=== PATIENT | female | born 1935 | race Caucasian/White ===

== ENCOUNTER 2017-03-22 08:23 | Day surgery (SDC) | payer MEDICARE ==
[~2017-03-22] VITALS: Ht 154.9 cm; Wt 50.0 kg
[~2017-03-22 08:23] MED LIST: AZIT250T74 PO; HYDR-2768 PO; NATURAL SUPPLEMENTS; NEBI20 PO; RAMI10CA35 PO; SYNT50TA PO; TEMA15 PO
[2017-03-22 08:35] VITALS: BP 180/80; PULSE 67; RESP 20; TEMP 98.2; O2SAT 97
[2017-03-22] MEDS ORDERED: RAMI10CA PO (08:51)
[2017-03-22] MEDS ORDERED: BYST10TA2 PO (08:51)
[2017-03-22] MEDS ORDERED: AMLO5TAB2 PO (08:51)
[2017-03-22] MEDS ORDERED: LEVO.05 PO (08:51)
[2017-03-22] MEDS ORDERED: TEMA15CA PO (08:51)
[2017-03-22] MEDS ORDERED: SODIUM CHLOR 0.9% 1000 ML INJ 1,000 ML IV SCH (09:00)
[2017-03-22 09:43] LABS: AUTOMATED NEUTROPHIL # 5.1 TH/MM3 (1.8-7.7); BASOPHIL # 0.1 TH/MM3 (0-0.2); BASOPHIL % 1.3 % (0.0-2.0); EOSINOPHIL # 0.3 TH/MM3 (0-0.4); EOSINOPHIL % 3.1 % (0.0-4.0); HEMATOCRIT 36.8 % (35.0-46.0); HEMO FLAGS DIFF FINAL; LYMPH % 23.1 % (9.0-44.0); LYMPHOCYTE # 1.9 TH/MM3 (1.0-4.8); MEAN CELL VOLUME 88.5 FL (80.0-100.0); MEAN CORPUSCULAR HEMOGLOBIN 29.4 PG (27.0-34.0); MEAN CORPUSCULAR HGB CONC 33.2 % (32.0-36.0); MONO % 10.1 % (0.0-8.0); NEUT % 62.4 % (16.0-70.0); PLATELET COUNT 219 TH/MM3 (150-450); RED BLOOD COUNT 4.16 MIL/MM3 (4.00-5.30); RED CELL DISTRIBUTION WIDTH 14.4 % (11.6-17.2); WHITE BLOOD COUNT 8.2 TH/MM3 (4.0-11.0)
[2017-03-22 09:51] LABS: APTT (PATIENT) 28.6 SEC (24.3-30.1); PROTHROMBIN TIME - PATIENT 11.2 SEC (9.8-11.6)
[2017-03-22 09:52] LABS: BICARBONATE 26.2 MEQ/L (21.0-32.0); POTASSIUM 4.4 MEQ/L (3.5-5.1)
[2017-03-22] MEDS ORDERED: NATTOKINASE PO (10:00)
== END 2017-03-22 10:40 | disposition home or self-care (01) ==
LOC: HROP 08:23 → HRIP 08:26 → HROP 10:40
PROVIDERS: ATTEND Family Medicine
DX: R51 Headache (principal); H53.10 Unspecified subjective visual disturbances; I10 Essential (primary) hypertension; E78.5 Hyperlipidemia, unspecified; E03.9 Hypothyroidism, unspecified; M85.80 Other specified disorders of bone density and structure, unspecified site; Z01.812 Encounter for preprocedural laboratory examination; Z53.9 Procedure and treatment not carried out, unspecified reason
CPT/HCPCS: 80048; 85025; 85610; 85730; 87015; 99211; G0463

== ENCOUNTER 2017-03-25 07:49 | Day surgery (SDC) | payer MEDICARE ==
[~2017-03-25] VITALS: Ht 154.9 cm; Wt 50.0 kg
[~2017-03-25 07:49] MED LIST changes: +AMLO5TAB2 PO; -AZIT250T74 PO; +BYST10TA2 PO; -HYDR-2768 PO; +LEVO.05 PO; +NATTOKINASE PO; -NATURAL SUPPLEMENTS; -NEBI20 PO; +RAMI10CA PO; -RAMI10CA35 PO; -SYNT50TA PO; -TEMA15 PO; +TEMA15CA PO
[2017-03-25] MEDS ORDERED: SODIUM CHLOR 0.9% 1000 ML INJ 1,000 ML IV SCH (09:00)
[2017-03-25 10:25] VITALS: BP 159/70; PULSE 60; RESP 20; TEMP 98.3; O2SAT 97
--- NOTE | 2017-03-25 10:26 | PD.RAD ---
Post Procedure Progress Note Pre Procedure Diagnosis: (1) Chronic headache Post Procedure Diagnosis: (1) Chronic headache Procedure Date: Mar 25, 2017 Supervising Radiologist: Fred Singleton Proceduralist/Assist: RT Brenda(R), RT Sanjuanita(R) Anesthesia: Local Plan of Activity Patient to Unit: ROPU Patient Condition: Good See PACS Report for procedural detail/treatment Spinal Procedure Lumbar Puncture L2 Fluid Removal (CCs): 13 Fluid Description: Clear Puncture Time: 10:04 Findings: OP: 18 cmH2O Fred Singleton MD Mar 25, 2017 10:26
[2017-03-25 10:45] VITALS: BP 142/53; PULSE 64; RESP 20; O2SAT 94
[2017-03-25 11:15] VITALS: BP 138/53; PULSE 59; RESP 20; O2SAT 96
[2017-03-25 11:42] LABS: GROSS BLOOD TUBE #1 TRACE (0); GROSS BLOOD TUBE #2 TRACE (0); SUPERNATE COLOR TUBE #1 CLEAR (CLEAR); SUPERNATE COLOR TUBE #2 CLEAR (CLEAR)
[2017-03-25 11:43] LABS: CSF LYMPHOCYTES 0 %; CSF NEUTROPHILS 0 %; GROSS BLOOD TUBE #3 ND (0); GROSS BLOOD TUBE #4 TRACE (0); SUPERNATE COLOR TUBE #3 ND (CLEAR); SUPERNATE COLOR TUBE #4 CLEAR (CLEAR); VOLUME TUBE # 4 7.5 ML; WBC TUBE #4 0 /MM3 (0-10)
[2017-03-25 11:45] VITALS: BP 136/62; PULSE 60; RESP 20; O2SAT 98
--- NOTE | 2017-03-25 12:00 | RADRPT ---
EXAM DATE/TIME: 03/25/2017 10:08 [facility] COMPARISON: No previous studies available for comparison. INDICATIONS : Patient presents with headaches and visual disturbances. MEDICAL HISTORY : Hypertension Cardiovascular Disease/PAD Heart Failure Afib/Flutter SURGICAL HISTORY : Pacemaker ENCOUNTER: Initial ACUITY: 3 days PAIN SCORE: 0/10 LUMBAR PUNCTURE TIME: 10:04 FLUORO TIME: 1.5 IMAGE SERIES: 1 ACCESS LEVEL: L2-3 FLUID: 13.5 cc of clear CSF was collected and sent to the laboratory for analysis. PROCEDURE : 1. Fluoroscopic guided lumbar puncture. The risks, benefits and alternatives to the procedure were explained and verbal and written consent w as obtained. The site was prepped in sterile fashion. Full sterile technique was used, including ca p, mask, sterile gloves and gown and a large sterile sheet. Hand hygiene and 2% chlorhexidine and/or betadine/alcohol prep was utilized per protocol for cutaneous antisepsis. The skin and subcutaneous tissues were infiltrated with local anesthetic solution. With fluoroscopic guidance the lumbar thecal sac was punctured at the level above. The fluid describ ed above was removed without difficulty. The patient tolerated the procedure well and there were no complications. CONCLUSION: Uncomplicated fluoroscopically guided lumbar puncture. Fred Singleton MD on March 25, 2017 at 11:58 Board Certified Radiologist. This report was verified electronically.
[2017-03-25 12:15] VITALS: BP 142/66; PULSE 58; RESP 20; O2SAT 98
[2017-03-28 10:33] LABS: CSF CRYPTOCOCCUS AG CONF ND (NOT DETECTD)
[2017-03-28 15:25] LABS: OLIGOCLONAL BANDING CSF 3 bands; OLIGOCLONAL BANDING INTERPRET 0 bands (<4); OLIGOCLONAL BANDING SERUM 3 bands
== END 2017-03-25 12:45 | disposition home or self-care (01) ==
LOC: HROP 07:49 → HRIP 07:50 → HROP 12:45
PROVIDERS: ATTEND Family Medicine
DX: R51 Headache (principal); I11.0 Hypertensive heart disease with heart failure; I50.9 Heart failure, unspecified; I48.92 Unspecified atrial flutter; I48.91 Unspecified atrial fibrillation; I25.10 Atherosclerotic heart disease of native coronary artery without angina pectoris; Z95.0 Presence of cardiac pacemaker
CPT/HCPCS: 62270; 77003; 82945; 83916; 84157; 86403; 86592; 87015; 87070; 87116; 87205; 87206; 89051; J7030

== ENCOUNTER → 2017-03-30 | Day surgery (SDC) | payer MEDICARE ==
[~2017-03-30] VITALS: Ht 154.9 cm; Wt 48.9 kg
[~2017-03-30] MED LIST changes: +CHLORHEXIDINE GLUCONATE 2 % 1 PACK (2 CLOTHS) TOPICAL PRN; +INSULIN HUMAN REGULAR 1,000 UNITS/10 ML VIAL SQ PRN; +LACTATED RINGER'S 1000 ML IV PRN; +LIDOCAINE HCL 2% 100 MG/5 ML SYRINGE ONE; +METOPROLOL TARTRATE 25 MG TAB PO PRN; +POVIDONE IODINE 5% (ANTISEPSIS KIT) 4 APPLICATIONS EACH NARE PRN; +SODIUM CHLORID 0.9% 500 ML IV PRN
[2017-03-30 12:15] VITALS: BP 149/65; PULSE 64; RESP 20; TEMP 97.7; O2SAT 100
--- NOTE | 2017-03-30 14:41 | EKG ---
Date Performed: 03/30/2017 Time Performed: 09:19:11 PTAGE: 82 years EKG: ELECTRONIC VENTRICULAR PACEMAKER ABNORMAL RHYTHM ECG PREVIOUS TRACING : 08/18/2012 21.53 Compared to the previous tracing, now appears to be V-paced , previously similar type QRS pattern but no pacer spikes noted DOCTOR: Hector So Interpretating Date/Time 03/30/2017 14:41:20
== END | disposition home or self-care (01) ==
LOC: HSDC 08:24
PROVIDERS: ATTEND Radiology Body Imaging
DX: G97.1 Other reaction to spinal and lumbar puncture (principal); I10 Essential (primary) hypertension; R94.31 Abnormal electrocardiogram [ECG] [EKG]; Z01.810 Encounter for preprocedural cardiovascular examination
CPT/HCPCS: 62273; 93005